=== PATIENT | female | born 1995 | race Two or more races ===

== ENCOUNTER 2021-06-02 01:17 | Emergency (ER) | payer MEDICAID ==
[~2021-06-02] VITALS: Ht 157.5 cm; Wt 92.0 kg
[2021-06-02 01:28] VITALS: BP 148/55
== END 2021-06-02 04:05 | disposition left against medical advice (07) ==
LOC: EMS 01:17
DX: Z00.00 Encounter for general adult medical examination without abnormal findings (principal); Z53.21 Procedure and treatment not carried out due to patient leaving prior to being seen by health care provider

== ENCOUNTER 2023-03-21 08:12 | Inpatient (IN) | payer MEDICAID ==
[~2023-03-21] VITALS: Ht 157.5 cm; Wt 94.8 kg
[2023-03-21] MEDS ORDERED: HYDR-4808 PO (08:16)
[2023-03-21] MEDS ORDERED: LURA60TA PO (08:16)
[2023-03-21 09:00] LABS: BASOPHILS % (AUTO) 0.8 % (0.0-2.0); EOSINOPHILS % (AUTO) 1.9 % (1.0-6.0); HEMATOCRIT 35.1 % (36-46); HEMOGLOBIN 11.3 g/dL (12.0-16.0); LYMPHOCYTES # (AUTO) 1.5 K/uL (1.0-4.8); LYMPHOCYTES % (AUTO) 23.8 % (22.0-44.0); MEAN CORPUSCULAR HEMOGLOBIN 26.8 pg (26.0-34.0); MEAN CORPUSCULAR HGB CONC 32.1 G/dL (31.0-37.0); MEAN CORPUSCULAR VOLUME 83 fL (80-100); MONOCYTES # (AUTO) 0.4 K/uL (0.1-1.0); MONOCYTES % (AUTO) 6.5 % (2.0-9.0); NEUTROPHILS # (AUTO) 4.3 K/uL (1.8-7.7); PLATELET COUNT (AUTO) 292 K/uL (150-450); RED BLOOD CELL COUNT(AUTO) 4.21 MIL/uL (4.00-5.20); RED CELL DISTRIBUTION WIDTH 16.8 % (11.5-14.5); WHITE BLOOD COUNT (AUTO) 6.5 K/uL (4.5-11.0)
[2023-03-21 09:08] LABS: ANION GAP 9 mmol/L (8-16); CALCIUM, TOTAL 9.5 mg/dL (8.8-10.5); CARBON DIOXIDE 31 mmol/L (22-29); CHLORIDE 103 mmol/L (98-107); CREATININE 0.87 mg/dL (0.60-1.30); GLOMERULAR FILTR. RATE CALC > 60 mL/min (>60); GLUCOSE,RANDOM 80 mg/dL (70-110); POTASSIUM 3.7 mmol/L (3.5-5.1); SODIUM SERUM 143 mmol/L (136-145); UREA NITROGEN, BLOOD 9 mg/dL (7-18)
[2023-03-21 09:14] LABS: ALANINE AMINOTRANSFERASE 21 U/L (12-78); ALBUMIN 3.8 g/dL (3.4-5.0); ALKALINE PHOSPHATASE 76 U/L (46-116); ASPARTATE AMINOTRANSFERASE 19 U/L (15-37); BILIRUBIN,TOTAL 0.5 mg/dL (0.1-1.0); TOTAL PROTEIN, SERUM 7.9 g/dL (6.4-8.2)
[2023-03-21 09:34] LABS: ALCOHOL, BLOOD (SERUM) < 3 mg/dL (0-10)
[2023-03-21 09:59] LABS: COVID AG,FIA SOURCE NASAL SWAB
[2023-03-21] MEDS ORDERED: ZOLPIDEM TARTRATE 10 MG TABLET PO PRN (10:00)
[2023-03-21] MEDS ORDERED: LORazepam 2 MG TABLET PO PRN (10:00)
[2023-03-21] MEDS ORDERED: HALOPERIDOL 5 MG TABLET PO ONE (10:00)
[2023-03-21] MEDS ORDERED: HALOPERIDOL 5 MG TABLET PO PRN (10:00)
[2023-03-21 10:23] LABS: SARS-COV2 (COVID) ANTIGEN,FIA Negative (Negative)
[2023-03-21 14:57] LABS: APPEARANCE,URINE TURBID (CLEAR); BILIRUBIN,URINE NEGATIVE (NEGATIVE); COLOR,URINE YELLOW (YELLOW); GLUCOSE, URINE (UA) NEGATIVE (NEGATIVE); KETONES,URINE NEGATIVE (NEGATIVE); LEUKOCYTE ESTERASE ,URINE NEGATIVE (NEGATIVE); NITRATE,URINE NEGATIVE (NEGATIVE); OCCULT BLOOD,URINE NEGATIVE (NEGATIVE); PH,URINE 8.5 (5.0-8.0); PROTEIN,URINE TRACE mg/dL (NEGATIVE); SPECIFIC GRAVITIY, URINE 1.019 (1.003-1.030); UROBILINOGEN,URINE <=1.0 mg/dL (<=1.0)
[2023-03-21 15:04] LABS: ALCOHOL, URINE DRUG SCREEN NEGATIVE (NEGATIVE); AMPHET/METH SCREEN,URINE POSITIVE (NEGATIVE); BARBITURATE SCREEN, URINE NEGATIVE (NEGATIVE); BENZODIAZEPINES SCREEN,URINE NEGATIVE (NEGATIVE); CANNABINOID SCREEN,URINE NEGATIVE (NEGATIVE); COCAINE SCREEN,URINE NEGATIVE (NEGATIVE); METHADONE SCREEN, URINE NEGATIVE (NEGATIVE); OPIATE SCREEN,URINE NEGATIVE (NEGATIVE); PHENCYCLIDINE SCREEN,URINE NEGATIVE (NEGATIVE)
[2023-03-21 15:08] VITALS: BP 138/79; PULSE 104; RESP 18; TEMP 97.9
[2023-03-21 15:22] LABS: PH,URINE DRUG SCREEN 6.5 (5.0-8.0)
[2023-03-21] MEDS ORDERED: PNEUMOCOCCAL VACCINE POLYVALENT 0.5 ML SYRINGE [PPSV23] IM. ONE (15:45)
[2023-03-21 23:15] VITALS: RESP 18
[2023-03-21 23:25] VITALS: RESP 18
[2023-03-22 02:03] LABS: COVID AG,FIA SOURCE NASAL SWAB
[2023-03-22 02:52] LABS: SARS-COV2 (COVID) ANTIGEN,FIA Negative (Negative)
[2023-03-22 09:16] VITALS: BP 113/55; PULSE 100; RESP 18; TEMP 97; O2SAT 97
[2023-03-22] MEDS ORDERED: ONDANSETRON HCL 4 MG TABLET PO PRN (09:30)
[2023-03-22] MEDS ORDERED: CloNIDine HCL 0.1 MG TABLET PO PRN (09:30)
[2023-03-22] MEDS ORDERED: DOCUSATE SODIUM 100 MG CAPSULE PO PRN (09:30)
[2023-03-22] MEDS ORDERED: MAG HYDROX/ALUMINUM HYD/SIMETH ES 30 ML SUSPENSION UDCUP PO PRN (09:30)
[2023-03-22] MEDS ORDERED: ALBUTEROL SULFATE HFA 90 MCG/PUFF 8 GM INHALER IH PRN (09:30)
[2023-03-22] MEDS ORDERED: LOPERAMIDE HCL 2 MG CAPSULE PO PRN (09:30)
[2023-03-22] MEDS ORDERED: MAGNESIUM HYDROXIDE SUSPENSION 30 ML UDCUP PO PRN (09:30)
[2023-03-22] MEDS ORDERED: ACETAMINOPHEN 325 MG TABLET PO PRN (09:30)
[2023-03-22] MEDS ORDERED: PETROLATUM,WHITE 28 GM JELLY TP PRN (09:30)
[2023-03-22] MEDS ORDERED: IBUPROFEN 400 MG TABLET PO PRN (09:30)
[2023-03-22] MEDS ORDERED: NICOTINE 14 MG/24 HOUR PATCH TD PRN (09:30)
[2023-03-22] MEDS ORDERED: GuaiFENesin/D-METHORPHAN [SUGAR-FREE] 200-20MG/10 ML SYRUP UDCUP PO PRN (09:30)
[2023-03-22 10:56] VITALS: BP 113/55; PULSE 100; RESP 18; TEMP 97
[2023-03-22] MEDS: LURASIDONE HCL 60 MG TABLET PO SCH (12:00)
[2023-03-22 23:00] VITALS: BP_SYST 100; BP_SYST 102; BP_DIAS 59; PULSE 84; RESP 18; TEMP 97.8; O2SAT 97
[2023-03-23] MEDS: LURASIDONE HCL 60 MG TABLET PO SCH ×2 (06:46→09:04)
[2023-03-23 08:49] VITALS: BP 112/78; PULSE 89; RESP 18; TEMP 98.1
[2023-03-23 09:28] VITALS: BP 112/78; PULSE 89; RESP 18; TEMP 98.1; O2SAT 96
[2023-03-23 10:15] LABS: HEMOGLOBIN A1C 5.3 % (3.8-5.6)
[2023-03-23 10:24] LABS: CHOL/HDL RATIO 2.5 (3.9-5.7); THYROID STIMULATING HORMONE 0.76 uIU/mL (0.36-3.74)
[2023-03-23] MEDS ORDERED: NICOTINE 21 MG/24 HOUR PATCH TD SCH (10:30)
[2023-03-23 21:19] VITALS: RESP 18
[2023-03-24] MEDS: LURASIDONE HCL 60 MG TABLET PO SCH (06:29)
[2023-03-24] MEDS ORDERED: LURA60TA4 PO (09:14)
== END 2023-03-24 12:22 | disposition home or self-care (01) | DRG 750 ==
LOC: EMS 08:19 → 3EI 13:32
PROVIDERS: ADMIT Psychiatry & Neurology Psychiatry; ATTEND Psychiatry & Neurology Psychiatry
DX: F25.1 Schizoaffective disorder, depressive type (principal); R45.851 Suicidal ideations; G47.00 Insomnia, unspecified; D64.9 Anemia, unspecified; F19.10 Other psychoactive substance abuse, uncomplicated; Z20.822 Contact with and (suspected) exposure to COVID-19; Z79.899 Other long term (current) drug therapy; Z59.00 Homelessness unspecified
CPT/HCPCS: 80053; 80061; 80307; 81003; 83036; 84443; 85025; 99285; G0480; Q9967